=== PATIENT | male | born 2000 | race Caucasian/White ===

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

== ENCOUNTER → 2022-03-17 | Outpatient (CLI) | payer OTHER ==
[~2022-03-17] MED LIST changes: -DOXY-350 PO; +DOXY-444 PO; +FAMO20TA5; +LOPE-26 PO; +PANT20TA6 PO
== END ==
LOC: M RAD 15:03
PROVIDERS: ATTEND Physician Assistant Medical
DX: N50.819 Testicular pain, unspecified (principal)

== ENCOUNTER → 2022-04-18 | Outpatient (REF) | payer OTHER ==
[2022-04-18 17:24] LABS: BASO # 0.1 10^3/uL (0.0-0.2); BASO % 1.4 % (0.0-1.0); EOS # 0.2 10^3/uL (0.0-0.5); HEMATOCRIT 48.8 % (42.0-52.0); LYMPH # 2.2 10^3/uL (1.5-5.0); LYMPH % 30.4 % (24.0-44.0); MEAN CORPUSCULAR HEMOGLOBIN 27.9 pg (27.0-33.0); MEAN CORPUSCULAR HGB CONC 32.8 g/dl (32.0-36.5); MONO # 0.8 10^3/uL (0.0-0.8); MONO % 11.6 % (2.0-8.0); NEUTROPHILS # 3.8 10^3/uL (1.5-8.5); PLATELET COUNT, AUTOMATED 303 10^3/uL (150-450); RED BLOOD COUNT 5.74 10^6/uL (4.30-6.10); WHITE BLOOD COUNT 7.2 10^3/uL (4.0-10.0)
[2022-04-18 18:49] LABS: HEPATITIS C VIRUS ABY INDEX 0.1 INDEX (<0.8)
[2022-04-18 19:44] LABS: ALBUMIN 4.4 G/DL (3.2-5.2); ALKALINE PHOSPHATASE 92 U/L (46-116); ALT/SGPT 35 U/L (7.0-40); AST/SGOT 23 U/L (<34); BILIRUBIN,TOTAL 0.9 MG/DL (0.3-1.2); BLOOD UREA NITROGEN 15 MG/DL (9-23); CARBON DIOXIDE LEVEL 28 MMOL/L (20-31); CHLORIDE LEVEL 101 MMOL/L (98-107); CHOLESTEROL LEVEL 184 MG/DL (<200); CHOLESTEROL RISK RATIO 5.45 (<5); CREATININE FOR GFR 0.89 MG/DL (0.70-1.30); GLUCOSE, FASTING 89 MG/DL (60-100); HDL CHOLESTEROL 33.7 MG/DL (>40); LDL CHOLESTEROL 119.3 MG/DL (<100); NON-HDL-C 150 MG/DL; POTASSIUM SERUM 4.4 MMOL/L (3.5-5.1); SODIUM LEVEL 138 MMOL/L (136-145); TRIGLYCERIDES LEVEL 155 MG/DL (<150)
== END ==
LOC: M LAB REF 16:16
PROVIDERS: ATTEND Physician Assistant
DX: Z11.59 Encounter for screening for other viral diseases (principal); K58.0 Irritable bowel syndrome with diarrhea; K75.81 Nonalcoholic steatohepatitis (NASH)

== ENCOUNTER → 2022-06-19 | Outpatient (REF) | payer OTHER | LOC: M LAB REF 16:01 | PROVIDERS: ATTEND Physician Assistant | DX: J02.9 Acute pharyngitis, unspecified (principal) ==

== ENCOUNTER → 2022-09-18 | Day surgery (SDC) | payer OTHER ==
[~2022-09-18] VITALS: Ht 182.9 cm; Wt 99.8 kg
[~2022-09-18] MED LIST changes: +LIDOCAINE 2% 100MG/5ML SDV (FOR ANES.) As Ordered ONE; +fentaNYL 100 MCG/2 ML INJECTION As Ordered ONE; +propofoL 200 MG/20 ML VIAL As Ordered ONE
[2022-09-18] MEDS: NS 1,000 ML IV ONE (11:29)
[2022-09-18 13:38] VITALS: BP 118/64; TEMP 97.3; O2SAT 95
== END | disposition home or self-care (01) ==
LOC: M OPP 10:33
PROVIDERS: ATTEND Internal Medicine Gastroenterology
DX: D12.6 Benign neoplasm of colon, unspecified (principal); K64.8 Other hemorrhoids; R10.84 Generalized abdominal pain; R63.4 Abnormal weight loss; K21.00 Gastro-esophageal reflux disease with esophagitis, without bleeding; K22.89 Other specified disease of esophagus; K29.70 Gastritis, unspecified, without bleeding; R10.13 Epigastric pain
CPT/HCPCS: 43239; 45385; 88305; J3010

== ENCOUNTER → 2023-01-17 | Outpatient (CLI) | payer OTHER, MEDICAID ==
[~2023-01-17] MED LIST changes: -LIDOCAINE 2% 100MG/5ML SDV (FOR ANES.) As Ordered ONE; -fentaNYL 100 MCG/2 ML INJECTION As Ordered ONE; -propofoL 200 MG/20 ML VIAL As Ordered ONE
[2023-01-17 16:56] LABS: BASO # 0.1 10^3/uL (0.0-0.2); BASO % 1.1 % (0.0-1.0); EOS # 0.1 10^3/uL (0.0-0.5); EOS % 1.2 % (0.0-3.0); HEMATOCRIT 47.8 % (42.0-52.0); LYMPH # 2.6 10^3/uL (1.5-5.0); LYMPH % 30.6 % (24.0-44.0); MEAN CORPUSCULAR HEMOGLOBIN 28.1 pg (27.0-33.0); MEAN CORPUSCULAR HGB CONC 33.5 g/dl (32.0-36.5); MEAN CORPUSCULAR VOLUME 83.9 fl (80.0-96.0); MONO # 0.6 10^3/uL (0.0-0.8); MONO % 7.4 % (2.0-8.0); NEUTROPHILS # 4.9 10^3/uL (1.5-8.5); NEUTROPHILS % 58.5 % (36.0-66.0); PLATELET COUNT, AUTOMATED 404 10^3/uL (150-450); WHITE BLOOD COUNT 8.4 10^3/uL (4.0-10.0)
[2023-01-17 17:19] LABS: ALBUMIN 4.5 G/DL (3.2-5.2); ALKALINE PHOSPHATASE 80 U/L (46-116); ALT/SGPT 44 U/L (7.0-40); AST/SGOT 21 U/L (<34); BILIRUBIN,TOTAL 0.6 MG/DL (0.3-1.2); BLOOD UREA NITROGEN 11 MG/DL (9-23); CARBON DIOXIDE LEVEL 29 MMOL/L (20-31); CHLORIDE LEVEL 103 MMOL/L (98-107); CREATININE FOR GFR 0.82 MG/DL (0.70-1.30); GLUCOSE, FASTING 80 MG/DL (60-100); POTASSIUM SERUM 4.5 MMOL/L (3.5-5.1); RHEUMATOID FACTOR QUANT < 3.5 IU/ML (<14); SODIUM LEVEL 138 MMOL/L (136-145); TOTAL PROTEIN 8.3 G/DL (5.7-8.2)
[2023-01-17 17:21] LABS: FREE T4 1.27 NG/DL (0.83-1.43); THYROID STIMULATING HORMONE 1.367 uIU/ML (0.48-4.17)
[2023-01-17 17:43] LABS: ERYTHROCYTE SEDIMENTATION RATE 24 mm/hr (0-15)
[2023-01-17 18:09] LABS: HEMOGLOBIN A1c 4.8 % (4.0-6.0)
== END ==
LOC: M WUC 14:50
PROVIDERS: ATTEND Nurse Practitioner Family
DX: R63.4 Abnormal weight loss (principal)

== ENCOUNTER → 2023-01-31 | Outpatient (REF) | payer OTHER ==
[2023-01-31 17:59] LABS: HIV 1&2 SCREEN NEGATIVE (NEGATIVE)
[2023-01-31 18:07] LABS: HEPATITIS C VIRUS ABY INDEX 0.08 INDEX (<0.8)
[2023-01-31 18:08] LABS: HEPATITIS B CORE ANTIBODY IGM NEGATIVE (NEGATIVE)
[2023-02-02 13:08] LABS: EBV AB TO NUCLEAR ANTIGEN 77.9 U/mL (0.0-17.9); EBV VIRAL CAPSID AG IgM <36.0 U/mL (0.0-35.9)
== END ==
LOC: M LAB REF 16:15
PROVIDERS: ATTEND Nurse Practitioner Family
DX: R59.1 Generalized enlarged lymph nodes (principal); R63.4 Abnormal weight loss

== ENCOUNTER 2023-02-02 23:11 | Emergency (ER) | payer MEDICAID ==
[~2023-02-02] VITALS: Ht 182.9 cm; Wt 90.0 kg
[2023-02-03 03:36] LABS: BASO # 0.1 10^3/uL (0.0-0.2); EOS # 0.2 10^3/uL (0.0-0.5); EOS % 1.4 % (0.0-3.0); HEMATOCRIT 47.7 % (42.0-52.0); LYMPH # 3.7 10^3/uL (1.5-5.0); LYMPH % 32.4 % (24.0-44.0); MEAN CORPUSCULAR HEMOGLOBIN 27.9 pg (27.0-33.0); MEAN CORPUSCULAR HGB CONC 33.5 g/dl (32.0-36.5); MEAN CORPUSCULAR VOLUME 83.1 fl (80.0-96.0); MONO # 1.1 10^3/uL (0.0-0.8); MONO % 9.3 % (2.0-8.0); NEUTROPHILS # 6.4 10^3/uL (1.5-8.5); NEUTROPHILS % 55.5 % (36.0-66.0); PLATELET COUNT, AUTOMATED 311 10^3/uL (150-450); RED BLOOD COUNT 5.74 10^6/uL (4.30-6.10); WHITE BLOOD COUNT 11.5 10^3/uL (4.0-10.0)
[2023-02-03 03:50] LABS: ALBUMIN 4.4 G/DL (3.2-5.2); ALKALINE PHOSPHATASE 72 U/L (46-116); ALT/SGPT 24 U/L (7.0-40); AST/SGOT 49 U/L (<34); BILIRUBIN,DIRECT 0.2 MG/DL (<0.4); BILIRUBIN,TOTAL 0.9 MG/DL (0.3-1.2); BLOOD UREA NITROGEN 15 MG/DL (9-23); CALCIUM LEVEL 9.9 MG/DL (8.5-10.1); CARBON DIOXIDE LEVEL 26 MMOL/L (20-31); CHLORIDE LEVEL 102 MMOL/L (98-107); CREATININE FOR GFR 0.73 MG/DL (0.70-1.30); GLUCOSE, FASTING 95 MG/DL (60-100); LIPASE 42 U/L (12-53); SODIUM LEVEL 139 MMOL/L (136-145)
[2023-02-03] MEDS ORDERED: NS 1,000 ML IV ONE (06:50)
[2023-02-03] MEDS ORDERED: ISOVUE-370 76% 100ML VIAL As Ordered ONE (06:59)
[2023-02-03 08:00] VITALS: BP 127/78; O2SAT 97
[2023-02-03 08:19] VITALS: TEMP 97
== END 2023-02-03 08:25 | disposition home or self-care (01) ==
LOC: M ED 23:11
DX: R59.0 Localized enlarged lymph nodes (principal); F17.200 Nicotine dependence, unspecified, uncomplicated; F12.10 Cannabis abuse, uncomplicated; G40.909 Epilepsy, unspecified, not intractable, without status epilepticus; F90.9 Attention-deficit hyperactivity disorder, unspecified type; Z88.0 Allergy status to penicillin; Z91.040 Latex allergy status
CPT/HCPCS: 70491; 74177; 80048; 80076; 83690; 85025; 93041; 96360; 99285; Q9967

== ENCOUNTER → 2023-02-02 | Outpatient (CLI) | payer MEDICAID | LOC: M RAD 11:05 | PROVIDERS: ATTEND Nurse Practitioner Family | DX: R59.9 Enlarged lymph nodes, unspecified (principal) ==

== ENCOUNTER → 2023-03-29 | Outpatient (CLI) | payer MEDICAID ==
[~2023-03-29] MED LIST changes: +COLA100C5 PO
[2023-03-29 13:28] LABS: BASO # 0.1 10^3/uL (0.0-0.2); EOS # 0.1 10^3/uL (0.0-0.5); EOS % 0.9 % (0.0-3.0); HEMATOCRIT 45.8 % (42.0-52.0); HEMOGLOBIN 15.3 g/dl (13.5-17.5); LYMPH # 2.6 10^3/uL (1.5-5.0); LYMPH % 28.4 % (24.0-44.0); MEAN CORPUSCULAR HEMOGLOBIN 28.1 pg (27.0-33.0); MEAN CORPUSCULAR HGB CONC 33.4 g/dl (32.0-36.5); MEAN CORPUSCULAR VOLUME 84.2 fl (80.0-96.0); MONO # 0.7 10^3/uL (0.0-0.8); MONO % 7.2 % (2.0-8.0); NEUTROPHILS # 5.6 10^3/uL (1.5-8.5); NEUTROPHILS % 62.1 % (36.0-66.0); PLATELET COUNT, AUTOMATED 353 10^3/uL (150-450); RED BLOOD COUNT 5.44 10^6/uL (4.30-6.10)
[2023-03-29 13:47] LABS: C REACTIVE PROTEIN QUANTITATIV < 0.40 MG/DL (<1.0)
[2023-03-29 13:48] LABS: LDH LACTATE DEHYDROGENASE 158 U/L (120-246)
[2023-03-29 13:49] LABS: ALBUMIN 4.4 G/DL (3.2-5.2); ALKALINE PHOSPHATASE 77 U/L (46-116); ALT/SGPT 35 U/L (7.0-40); AST/SGOT 16 U/L (<34); BILIRUBIN,TOTAL 0.3 MG/DL (0.3-1.2); BLOOD UREA NITROGEN 14 MG/DL (9-23); CALCIUM LEVEL 10.7 MG/DL (8.5-10.1); CARBON DIOXIDE LEVEL 29 MMOL/L (20-31); CHLORIDE LEVEL 107 MMOL/L (98-107); GLOMERULAR FILTRATION RATE > 60.0 (>60); GLUCOSE, FASTING 91 MG/DL (60-100); POTASSIUM SERUM 5.1 MMOL/L (3.5-5.1); SODIUM LEVEL 140 MMOL/L (136-145); TOTAL PROTEIN 8.1 G/DL (5.7-8.2)
[2023-03-29 13:50] LABS: IMMUNOGLOBULIN A 228.4 MG/DL (40-350); IMMUNOGLOBULIN G 1456 MG/DL (650-1600)
[2023-03-29 13:51] LABS: FOLATE 15.4 NG/ML (>5.4); IMMUNOGLOBULIN M 131.6 MG/DL (50-300); RHEUMATOID FACTOR QUANT < 3.5 IU/ML (<14)
[2023-03-29 13:53] LABS: VITAMIN B12 LEVEL 416 PG/ML (211-911)
[2023-03-29 13:54] LABS: ERYTHROCYTE SEDIMENTATION RATE 13 mm/hr (0-15)
[2023-03-30 20:07] LABS: ANTINUCLEAR ANTIBODIES DIRECT Negative (Negative); CYCLIC CITRULLINATED PEPTIDE 6 units (0-19)
== END ==
LOC: M LAB 12:34
PROVIDERS: ATTEND Internal Medicine Hematology & Oncology
DX: R59.0 Localized enlarged lymph nodes (principal)

== ENCOUNTER 2023-06-25 12:33 | Day surgery (SDC) | payer MEDICAID ==
[~2023-06-25] VITALS: Ht 182.9 cm; Wt 93.4 kg
[2023-06-25] MEDS ORDERED: LR 1,000 ML IV SCH ×2 (13:50→15:55)
[2023-06-25] MEDS ORDERED: ROCURONIUM BROMIDE 50MG/5ML VIAL As Ordered ONE (15:17)
[2023-06-25] MEDS ORDERED: LIDOCAINE 2% 100MG/5ML SDV (FOR ANES.) As Ordered ONE (15:17)
[2023-06-25] MEDS ORDERED: propofoL 200 MG/20 ML VIAL As Ordered ONE (15:17)
[2023-06-25] MEDS ORDERED: dexmedeTOMIDine (4MCG/ML)200MCG/50ML BTL (PRECEDEX) As Ordered ONE (15:17)
[2023-06-25] MEDS ORDERED: fentaNYL 100 MCG/2 ML INJECTION As Ordered ONE (15:17)
[2023-06-25] MEDS ORDERED: SUGAMMADEX SODIUM 500 MG/5 ML VIAL (BRIDION) As Ordered ONE (15:17)
[2023-06-25] MEDS ORDERED: ACETAMINOPHEN 1000MG 100ML IV BAG As Ordered ONE (15:17)
[2023-06-25] MEDS ORDERED: MIDAZOLAM INJ 2MG/2ML VIAL As Ordered ONE (15:17)
[2023-06-25] MEDS ORDERED: ONDANSETRON 4MG 2ML VIAL As Ordered ONE (15:17)
[2023-06-25] MEDS ORDERED: fentaNYL 100 MCG/2 ML INJECTION IV PRN (15:55)
[2023-06-25] MEDS ORDERED: HYDROMORPHONE HCL 0.5 MG/ 0.5 ML SYRINGE IV PRN (15:55)
[2023-06-25] MEDS: ONDANSETRON 4MG 2ML VIAL IV PRN (16:18)
[2023-06-25] MEDS: oxyCODONE 5MG TAB PO PRN (16:18)
[2023-06-25 17:27] VITALS: BP 121/68; TEMP 97.9; O2SAT 98
== END 2023-06-25 17:44 | disposition home or self-care (01) ==
LOC: M SDC 12:33
PROVIDERS: ATTEND Otolaryngology
DX: J35.01 Chronic tonsillitis (principal); R22.1 Localized swelling, mass and lump, neck; F41.9 Anxiety disorder, unspecified; F32.A Depression, unspecified; Z91.040 Latex allergy status; F12.10 Cannabis abuse, uncomplicated; F17.200 Nicotine dependence, unspecified, uncomplicated; Z88.0 Allergy status to penicillin
CPT/HCPCS: 42826; 88302; J0131; J1100; J2250; J2405; J3010

== ENCOUNTER → 2023-08-27 | Outpatient (CLI) | payer MEDICAID ==
[~2023-08-27] MED LIST changes: +DOXY-440 PO; -DOXY-444 PO
== END ==
LOC: M WUC 15:02
PROVIDERS: ATTEND Physician Assistant
DX: M25.572 Pain in left ankle and joints of left foot (principal)

== ENCOUNTER → 2023-08-31 | Outpatient (REF) | payer MEDICAID ==
[2023-08-31 18:45] LABS: CHOLESTEROL RISK RATIO 3.85 (<5); HDL CHOLESTEROL 38.1 MG/DL (>40); LDL CHOLESTEROL 85.1 MG/DL (<100); NON-HDL-C 108.9 MG/DL
== END ==
LOC: M LAB REF 17:02
PROVIDERS: ATTEND Physician Assistant
DX: K58.0 Irritable bowel syndrome with diarrhea (principal); K75.81 Nonalcoholic steatohepatitis (NASH)

== ENCOUNTER → 2023-10-05 | Outpatient (CLI) | payer MEDICAID ==
[~2023-10-05] MED LIST changes: +ISOVUE-370 76% 100ML VIAL As Ordered ONE
== END ==
LOC: M RAD 17:00
PROVIDERS: ATTEND Internal Medicine Hematology & Oncology
DX: C77.9 Secondary and unspecified malignant neoplasm of lymph node, unspecified (principal)
CPT/HCPCS: 70491; Q9967

== ENCOUNTER → 2023-11-12 | Outpatient (CLI) | payer MEDICAID, OTHER ==
[~2023-11-12] MED LIST changes: +CHOL1250 PO; -ISOVUE-370 76% 100ML VIAL As Ordered ONE; +LIDOCAINE 1% MDV 20ML VIAL As Ordered ONE; +VITA200012 PO
[2023-11-12 14:20] VITALS: TEMP 98.8
[2023-11-12 14:55] VITALS: BP 134/77; O2SAT 98
== END ==
LOC: M IRPRO 14:10
PROVIDERS: ATTEND Internal Medicine Medical Oncology
DX: R59.0 Localized enlarged lymph nodes (principal)